=== PATIENT | male | born 1985 | race Caucasian/White ===

== ENCOUNTER 2019-02-26 15:46 | Emergency (ER) | payer OTHER ==
[~2019-02-26] VITALS: Ht 152.4 cm; Wt 99.8 kg
--- NOTE | 2019-02-26 16:55 | NUR ---
Patient discharged to home in stable conditon. Written and verbal after care instructions given. Patient verbalizes understanding of instructions.
[2019-02-26 16:56] VITALS: BP 145/90
== END 2019-02-26 16:57 | disposition home or self-care (01) ==
LOC: ER 15:52
DX: K58.9 Irritable bowel syndrome, unspecified (principal); F41.9 Anxiety disorder, unspecified
CPT/HCPCS: A4663

== ENCOUNTER 2020-12-29 18:13 | Emergency (ER) | payer OTHER ==
[~2020-12-29] VITALS: Ht 177.8 cm; Wt 85.3 kg
[2020-12-29] MEDS ORDERED: HYDROMORPHONE 1 MG/1 ML DISP.SYRIN IV ONE (19:30)
[2020-12-29] MEDS ORDERED: IV NORMAL SALINE 1000 ML BAG IV ONE (19:30)
[2020-12-29] MEDS ORDERED: ONDANSETRON 4 MG/2 ML VIAL IV ONE (19:30)
--- NOTE | 2020-12-29 19:32 | NUR ---
lab at bedside
[2020-12-29] MEDS ORDERED: ONDANSETRON 4 MG/2 ML VIAL ONE (19:38)
[2020-12-29] MEDS ORDERED: HYDROMORPHONE 1 MG/1 ML DISP.SYRIN ONE (19:38)
--- NOTE | 2020-12-29 19:43 | NUR ---
Dr. Saldana at bedside to do mse.
[2020-12-29 19:44] LABS: BASOPHILS % (AUTO) 0.3 % (0.0-2.0); EOSINOPHILS % (AUTO) 0.3 % (0.0-7.0); HEMATOCRIT 50.4 % (36.7-47.1); HEMOGLOBIN 17.4 g/dL (12.5-16.3); LYMPHOCYTES # (AUTO) 1.6 K/uL (20.0-40.0); LYMPHOCYTES % (AUTO) 16.7 % (20.5-51.5); MEAN CORPUSCULAR HEMOGLOBIN 30.9 uug (23.8-33.4); MEAN CORPUSCULAR HGB CONC 34 g/dL (32.5-36.3); MEAN CORPUSCULAR VOLUME 89.6 fL (73.0-96.2); MONOCYTES # (AUTO) 0.6 K/uL (2.0-10.0); MONOCYTES % (AUTO) 6.7 % (0.0-11.0); NEUTROPHILS # (AUTO) 7.3 K/uL (1.8-8.9); PLATELET COUNT (AUTO) 164 K/uL (152-348); RED BLOOD CELL COUNT(AUTO) 5.63 MIL/uL (4.06-5.63); WHITE BLOOD COUNT (AUTO) 9.6 K/uL (3.6-10.2)
[2020-12-29 19:47] LABS: *BILIRUBIN,URIN 1+ (NEGATIVE); *CLARITY,URINE CLEAR (CLEAR); *COLOR,URINE YELLOW (YELLOW); *KETONES,URINE 4+ (NEGATIVE); *UROBILINOGEN,URINE 0.2 E.U./dl (NORMAL); LEUKOCYTE ESTERASE ,URINE NEGATIVE (NEGATIVE); NITRITE, URINE NEGATIVE (NEGATIVE); PH,URINE 5.5 (5.0-8.0); UGLUCOSE NEGATIVE (NEGATIVE)
[2020-12-29 19:48] LABS: *BLOOD, URINE TRACE INTACT (NEGATIVE)
[2020-12-29 19:48] LABS: POTASSIUM 3.9 mmol/L (3.5-5.1)
[2020-12-29 19:54] LABS: BILIRUBIN,DIRECT 0.2 mg/dL (0.0-0.2); BILIRUBIN,TOTAL 0.9 mg/dL (0.2-1.0); TOTAL PROTEIN, SERUM 7.8 g/dL (6.4-8.2)
[2020-12-29] MEDS ORDERED: LORAZEPAM 2 MG/1 ML VIAL IV ONE (20:00)
[2020-12-29] MEDS ORDERED: LORAZEPAM 2 MG/1 ML VIAL ONE (20:07)
[2020-12-29] MEDS ORDERED: IOHEXOL 300MG/ML 100 ML INFUS..BTL ONE (20:10)
[2020-12-29] MEDS ORDERED: IV NORMAL SALINE 250 ML IV ONE (20:10)
[2020-12-29] MEDS ORDERED: SWABABLE VALVE TRANSFER SET EA MC ONE (20:10)
[2020-12-29 20:11] LABS: BACTERIA,URINE NONE SEEN /HPF (NONE SEEN); WBC,URINE NONE SEEN /HPF (0-3)
--- NOTE | 2020-12-29 20:19 | NUR ---
Pt. being taken to ct
--- NOTE | 2020-12-29 20:30 | NUR ---
pt returned from ct
[2020-12-29] MEDS ORDERED: RABE20TA18 PO (22:12)
[2020-12-29] MEDS ORDERED: CLAR-45 PO (22:12)
[2020-12-29] MEDS ORDERED: TINI500T10 PO (22:12)
[2020-12-29] MEDS ORDERED: AMOX500C2 PO (22:12)
[2020-12-29] MEDS ORDERED: OMEP20TA5 PO (22:47)
[2020-12-29] MEDS ORDERED: BISM262T15 PO (22:47)
[2020-12-29] MEDS ORDERED: TETR-66 PO (22:47)
[2020-12-29] MEDS ORDERED: METR500T PO (22:47)
[2020-12-29 22:52] VITALS: BP 119/76
== END 2020-12-29 22:25 | disposition home or self-care (01) ==
LOC: ER 18:19
DX: K29.70 Gastritis, unspecified, without bleeding (principal); E86.0 Dehydration; Z88.0 Allergy status to penicillin; I47.1 Supraventricular tachycardia; K58.9 Irritable bowel syndrome, unspecified; Z79.899 Other long term (current) drug therapy
CPT/HCPCS: 36415; 74177; 80048; 80076; 81001; 83690; 85025; 96361; 96374; 96375; 99285; J1170; J2060; J2405; Q9967; A4663; J7030; J7050